=== PATIENT | male | born 1955 | race Caucasian/White ===

== ENCOUNTER 2018-01-17 14:16 | Outpatient (CLI) | payer MEDICARE, MEDICAID ==
[~2018-01-17 14:16] MED LIST: COL100C PO; LISI-222 PO; METF500T PO; POLY17PO10 PO; ZOC5T PO; [UNRECOGNIZED DRUG - CODE] PO
== END 2018-01-17 23:59 | disposition home or self-care (01) ==
LOC: RAD 14:16
PROVIDERS: ATTEND Family Medicine
DX: R13.12 Dysphagia, oropharyngeal phase (principal); R47.1 Dysarthria and anarthria; I10 Essential (primary) hypertension; E11.9 Type 2 diabetes mellitus without complications; Z98.890 Other specified postprocedural states
CPT/HCPCS: 74230

== ENCOUNTER 2018-06-15 17:15 | Emergency (ER) | payer MEDICARE, MEDICAID ==
[~2018-06-15] VITALS: Ht 172.7 cm; Wt 80.9 kg
[~2018-06-15 17:15] MED LIST changes: +SIMV5TAB58 PO; -ZOC5T PO
--- NOTE | 2018-06-15 19:27 | NUR ---
PATIENT SITTING IN WC IN ROOM, TRANSFERED PATIENT TO [facility] VIA [facility]RIST[facility] LIFT FOR CT SCAN; PATIENT HAD HIS HOME SLING UNDER HIM
--- NOTE | 2018-06-15 19:29 | NUR ---
INFORMED CT SCAN PATIENT ON [facility]
[2018-06-15 20:56] VITALS: BP 137/85
== END 2018-06-15 20:57 | disposition home or self-care (01) ==
LOC: ER 17:16
DX: T18.4XXA Foreign body in colon, initial encounter (principal); E11.9 Type 2 diabetes mellitus without complications; Z86.73 Personal history of transient ischemic attack (TIA), and cerebral infarction without residual deficits; Z79.84 Long term (current) use of oral hypoglycemic drugs; Z79.899 Other long term (current) drug therapy; W45.8XXA Other foreign body or object entering through skin, initial encounter; Y93.89 Activity, other specified; Y92.89 Other specified places as the place of occurrence of the external cause; Y99.8 Other external cause status
CPT/HCPCS: 74018; 74176; 99284

== ENCOUNTER 2018-06-28 13:04 | Emergency (ER) | payer MEDICARE, MEDICAID ==
[~2018-06-28] VITALS: Ht 177.8 cm; Wt 93.6 kg
[2018-06-28 13:16] VITALS: BP 132/76
--- NOTE | 2018-06-28 13:31 | NUR ---
[phone] RUTHANN GRAVES, CONSERVATOR AND SISTER IN LAW
[2018-06-28] MEDS ORDERED: PEG1POWD PO (13:50)
[2018-06-28] MEDS ORDERED: POLY17PO10 PO (13:50)
[2018-07-02] MEDS ORDERED: LEVO75TA7 PO (18:19)
[2018-07-02] MEDS ORDERED: OMEP20TA5 PO (18:20)
[2018-07-02] MEDS ORDERED: LISI2.5T89 PO (18:33)
[2018-07-02] MEDS ORDERED: CHOL10002 PO (18:33)
[2018-07-02] MEDS ORDERED: POLY17PO10 PO (18:33)
[2018-07-02] MEDS ORDERED: DOCU250C4 PO (18:33)
[2018-07-02] MEDS ORDERED: ASPI-1265 PO (18:33)
[2018-07-02] MEDS ORDERED: SERT25TA PO (18:33)
[2018-07-02] MEDS ORDERED: METF500T PO (18:33)
[2018-07-02] MEDS ORDERED: PHEN100C12 PO (18:33)
[2018-07-02] MEDS ORDERED: SIMV10TA2 PO (18:33)
== END 2018-06-28 14:32 | disposition home or self-care (01) ==
LOC: ER 13:05
DX: T18.4XXA Foreign body in colon, initial encounter (principal); E11.9 Type 2 diabetes mellitus without complications; Z86.73 Personal history of transient ischemic attack (TIA), and cerebral infarction without residual deficits; X58.XXXA Exposure to other specified factors, initial encounter; Y93.89 Activity, other specified; Y92.89 Other specified places as the place of occurrence of the external cause; Y99.8 Other external cause status
CPT/HCPCS: 99283

== ENCOUNTER 2018-07-02 12:18 | Inpatient (IN) | payer MEDICARE, MEDICAID | END 2018-07-05 13:30 | disposition home or self-care (01) | LOC: ER 12:18 → ED HOLD 19:37 → SUR 3N 22:00 | DX: T18.3XXA Foreign body in small intestine, initial encounter (principal); E11.9 Type 2 diabetes mellitus without complications; Z86.73 Personal history of transient ischemic attack (TIA), and cerebral infarction without residual deficits; Z99.3 Dependence on wheelchair ==

== ENCOUNTER 2018-09-02 09:54 | Emergency (ER) | payer MEDICARE, MEDICAID ==
[~2018-09-02] VITALS: Ht 180.3 cm; Wt 113.6 kg
[~2018-09-02 09:54] MED LIST changes: +ASPI-1265 PO; +CHOL10002 PO; -COL100C PO; +DOCU250C4 PO; +LEVO75TA7 PO; -LISI-222 PO; +LISI2.5T89 PO; -METF500T PO; +OMEP20TA5 PO; +PHEN100C12 PO; +SERT25TA PO; +SIMV10TA2 PO; -SIMV5TAB58 PO; -[UNRECOGNIZED DRUG - CODE] PO
[2018-09-02 10:09] VITALS: BP 121/76
[2018-09-02] MEDS ORDERED: VALA10002 PO (11:27)
== END 2018-09-02 12:05 | disposition home or self-care (01) ==
LOC: ER 09:55
DX: R21 Rash and other nonspecific skin eruption (principal); E11.9 Type 2 diabetes mellitus without complications; Z86.73 Personal history of transient ischemic attack (TIA), and cerebral infarction without residual deficits; Z98.890 Other specified postprocedural states; Z79.82 Long term (current) use of aspirin; Z79.899 Other long term (current) drug therapy
CPT/HCPCS: 99284

== ENCOUNTER 2018-11-22 07:50 | Emergency (ER) | payer MEDICARE, MEDICAID ==
[~2018-11-22] VITALS: Ht 182.9 cm; Wt 118.2 kg
[~2018-11-22 07:50] MED LIST changes: +DOCU-329 PO; -DOCU250C4 PO; +VALA10002 PO
[2018-11-22] MEDS ORDERED: iohexol 300 MG/1 ML 50ml polymer ONE (10:58)
--- NOTE | 2018-11-22 11:00 | NUR ---
PT TO INTERVENTION RADIOLOGY.
[2018-11-22] MEDS ORDERED: fentaNYL/PF 50MCG/1 ML 2ML syringe ONE (11:24)
--- NOTE | 2018-11-22 11:45 | NUR ---
PT BACK FROM INTERVENTIONAL RADIOLOGY,PT FIRST SET OF VITALS CHECKED HR 54 AND THEN DROPED TO 46 AND BACK TO 55 DR FROST AT BEDSIDE NOTIFIED PER MD PT WAS BRADYCARDIC BEFORE THATS HIS BASELINE PT IS STABLE NOTHING TO WORRY.
[2018-11-22 12:43] VITALS: BP 116/85
== END 2018-11-22 12:43 | disposition home or self-care (01) ==
LOC: ER 07:51
DX: K94.29 Other complications of gastrostomy (principal); E11.9 Type 2 diabetes mellitus without complications; Z86.69 Personal history of other diseases of the nervous system and sense organs; Z86.73 Personal history of transient ischemic attack (TIA), and cerebral infarction without residual deficits; Z98.890 Other specified postprocedural states; Z79.82 Long term (current) use of aspirin; Z79.899 Other long term (current) drug therapy
CPT/HCPCS: 49450; 99284; C1769; J3010; Q9967; B4087

== ENCOUNTER 2018-11-25 12:19 | Inpatient (IN) | payer MEDICARE, MEDICAID ==
[~2018-11-25] VITALS: Ht 175.3 cm; Wt 77.3 kg
[2018-11-25 13:18] LABS: BASOPHILS % (AUTO) 0.2 % (0-1); EOSINOPHILS % (AUTO) 0.7 % (0-6); HEMATOCRIT 38.1 % (42.0-52.0); HEMOGLOBIN 12.9 g/dl (14.0-17.9); LYMPHOCYTES # (AUTO) 0.8 X10'3 (1.1-4.8); MEAN CORPUSCULAR HEMOGLOBIN 32.4 PG (27.0-31.0); MEAN CORPUSCULAR HGB CONC 33.7 g/dL (33.0-36.5); MEAN PLATELET VOLUME 8.4 FL (7.4-10.4); MONOCYTES # (AUTO) 0.4 X10'3 (0-0.9); MONOCYTES % (AUTO) 5.7 % (2-12); NEUTROPHILS # (AUTO) 5.4 X10'3 (1.8-7.7); NEUTROPHILS % (AUTO) 81.4 % (42-75); PLATELET COUNT 86 X10'3 (140-440); RED BLOOD COUNT 3.97 X10'6 (4.70-6.10); RED CELL DISTRIBUTION WIDTH 15.4 % (11.5-14.5); WHITE BLOOD COUNT 6.6 X10'3 (4.5-11.0)
[2018-11-25 13:33] LABS: PARTIAL THROMBOPLASTIN TIME 42 SECONDS (22-32)
[2018-11-25 13:34] LABS: PLATELET ESTIMATE DECREASED; TOTAL CELLS COUNTED 100
[2018-11-25 13:35] LABS: ANISOCYTOSIS 1+; TOXIC GRANULATION 1+
[2018-11-25 13:40] LABS: ALANINE AMINOTRANSFERASE 47 U/L (12-78); ALBUMIN 2.8 G/DL (3.4-5.0); ALBUMIN/GLOBULIN RATIO 0.7 (1.1-1.5); ALKALINE PHOSPHATASE 118 IU/L (46-116); ANION GAP 8 (8-16); ASPARTATE AMINO TRANSFERASE 32 U/L (10-37); BILIRUBIN,TOTAL 0.2 MG/DL (0.1-1.0); BLOOD UREA NITROGEN 22 MG/DL (7-18); BUN/CREATININE RATIO 26.2 (5.4-32.0); CHLORIDE 107 MMOL/L (99-107); CREATININE 0.84 MG/DL (0.60-1.10); GLUCOSE 73 MG/DL (70-104); POTASSIUM 4.1 MMOL/L (3.5-5.1); SODIUM 142 MMOL/L (135-145); TOTAL CARBON DIOXIDE 26.6 MMOL/L (24-32); TOTAL PROTEIN 7.1 G/DL (6.4-8.2); eGFR > 90 ML/MIN
[2018-11-25 13:43] LABS: LACTIC SEPSIS 0.9 MMOL/L (0.4-2.0)
[2018-11-25 13:50] LABS: PHENYTOIN (DILANTIN) 5.8 UG/ML (10.0-20.0)
[2018-11-25 14:02] LABS: CLARITY,URINE SLIGHTLY CLOUDY (Clear); COLOR,URINE YELLOW (Yellow); GLUCOSE, URINE NEGATIVE (Neg); KETONES,URINE NEGATIVE (Neg); LEUKOCYTE ESTERASE ,URINE MODERATE (Neg); NITRITES, URINE NEGATIVE (Neg); OCCULT BLOOD,URINE NEGATIVE (Neg); PROTEIN,URINE NEGATIVE (Neg); UROBILINOGEN,URINE 0.2 E.U/dL (0.2-1.0)
[2018-11-25 14:08] LABS: UA COLLECTION TYPE STRAIGHT CATH
[2018-11-25 14:10] LABS: BACTERIA,URINE 4+ /HPF (Neg); MUCUS STRANDS NONE SEEN /LPF (Neg); RBC,URINE NONE SEEN /HPF (0-2); SQUAMOUS EPITHELIAL CELL,UR NONE SEEN /LPF (FEW)
[2018-11-25 14:11] LABS: WBC CLUMPS,URINE FEW /HPF (NEGATIVE)
[2018-11-25 14:13] LABS: URINE AMPHETAMINE SCREEN NEGATIVE (Neg); URINE BARBITUATE SCREEN NEGATIVE (Neg); URINE BENZODIAZEPINES SCREEN POSITIVE (Neg); URINE CANNABINOID SCREEN NEGATIVE (Neg); URINE COCAINE SCREEN NEGATIVE (Neg); URINE METHADONE SCREEN NEGATIVE (Neg); URINE OPIATE SCREEN NEGATIVE (Neg); URINE PHENCYCLIDINE SCREEN NEGATIVE (Neg)
[2018-11-25] MEDS ORDERED: azithromycin/NS 500mg/250ml 250 ML IV ONE (14:25)
[2018-11-25] MEDS ORDERED: CefTRIAXone/D5W-Rocephin 1gm 50 ML IV ONE (14:25)
[2018-11-25] MEDS: normal saline 1000ml 1,000 ML IV SCH (14:42)
[2018-11-25] MEDS ORDERED: bisacodyl 10mg suppository rectal RC PRN (14:45)
[2018-11-25] MEDS ORDERED: potassium CL 10mEq/100ml bag 100 ML IV PRN ×2 (14:45)
[2018-11-25] MEDS ORDERED: magnesium 2GM in 50ml NS 50 ML IV PRN (14:45)
[2018-11-25] MEDS ORDERED: magnesium 4gm in 100ml NS 100 ML IV PRN (14:45)
[2018-11-25] MEDS ORDERED: ondansetron/PF 4mg/2ml inj IV PRN (14:45)
[2018-11-25] MEDS ORDERED: acetaminophen 650mg rectal suppository RC PRN (14:45)
[2018-11-25] MEDS: piperacillin/tazo 3.375gm/50ml 50 ML IV SCH ×2 (16:00→23:52)
[2018-11-25] MEDS: NORMAL SALINE IV SCH ×2 (17:21→23:30)
[2018-11-25] MEDS: PHENYTOIN SOD IV SCH ×2 (17:21→23:30)
[2018-11-25 19:15] VITALS: BP 116/63
[2018-11-25 23:00] VITALS: BP 139/79
[2018-11-26] MEDS: normal saline 1000ml 1,000 ML IV SCH ×2 (00:42→05:47)
--- NOTE | 2018-11-26 06:23 | NUR ---
Problems reprioritized. Patient report given, questions answered & plan of care reviewed with GWYN. Addendum: 11/26/18 at 0624 by Beck Rivera RN Amended: Links added.
[2018-11-26 06:39] LABS: ALANINE AMINOTRANSFERASE 44 U/L (12-78); ALBUMIN 2.6 G/DL (3.4-5.0); ALBUMIN/GLOBULIN RATIO 0.6 (1.1-1.5); ALKALINE PHOSPHATASE 105 IU/L (46-116); ANION GAP 8 (8-16); ASPARTATE AMINO TRANSFERASE 38 U/L (10-37); BILIRUBIN,TOTAL 0.3 MG/DL (0.1-1.0); CALCIUM 8.5 MG/DL (8.5-10.1); CHLORIDE 110 MMOL/L (99-107); CREATININE 0.76 MG/DL (0.60-1.10); GLUCOSE 57 MG/DL (70-104); MAGNESIUM 1.7 MG/DL (1.5-2.4); POTASSIUM 4.1 MMOL/L (3.5-5.1); SODIUM 142 MMOL/L (135-145); TOTAL CARBON DIOXIDE 24.2 MMOL/L (24-32); TOTAL PROTEIN 6.7 G/DL (6.4-8.2); eGFR > 90 ML/MIN
[2018-11-26 06:53] LABS: BLOOD UREA NITROGEN 19 MG/DL (7-18)
[2018-11-26 07:54] VITALS: BP 127/73
[2018-11-26] MEDS: K and/or MAG REPLACEMENT MC SCH (08:00)
[2018-11-26] MEDS ORDERED: DOXY-224 PO (08:23)
[2018-11-26] MEDS ORDERED: DOCU-329 PO (08:26)
[2018-11-26] MEDS ORDERED: POLY17PO10 PO (08:27)
[2018-11-26 10:00] VITALS: BP 143/77
[2018-11-26] MEDS: PHENYTOIN SOD IV SCH ×3 (10:33→23:35)
[2018-11-26] MEDS: NORMAL SALINE IV SCH ×3 (10:33→23:35)
[2018-11-26] MEDS: piperacillin/tazo 3.375gm/50ml 50 ML IV SCH ×2 (10:42→15:41)
[2018-11-26 11:29] LABS: BASOPHILS % (AUTO) 0.5 % (0-1); EOSINOPHILS # (AUTO) 0.1 X10'3 (0-0.9); EOSINOPHILS % (AUTO) 1.7 % (0-6); HEMATOCRIT 36.8 % (42.0-52.0); HEMOGLOBIN 12.4 g/dl (14.0-17.9); LYMPHOCYTES # (AUTO) 0.8 X10'3 (1.1-4.8); LYMPHOCYTES % (AUTO) 18.6 % (21-51); MEAN CORPUSCULAR HEMOGLOBIN 32.4 PG (27.0-31.0); MEAN CORPUSCULAR HGB CONC 33.6 g/dL (33.0-36.5); MEAN CORPUSCULAR VOLUME 96.7 FL (78-98); MEAN PLATELET VOLUME 8.7 FL (7.4-10.4); MONOCYTES # (AUTO) 0.4 X10'3 (0-0.9); MONOCYTES % (AUTO) 9.4 % (2-12); NEUTROPHILS # (AUTO) 2.9 X10'3 (1.8-7.7); NEUTROPHILS % (AUTO) 69.8 % (42-75); PLATELET COUNT 79 X10'3 (140-440); RED BLOOD COUNT 3.81 X10'6 (4.70-6.10); RED CELL DISTRIBUTION WIDTH 15.5 % (11.5-14.5); WHITE BLOOD COUNT 4.1 X10'3 (4.5-11.0)
[2018-11-26 18:00] VITALS: BP 127/77
--- NOTE | 2018-11-26 18:25 | NUR ---
Received report from Lucretia BRAR, assumed care of patient with Aarti BRAR.
[2018-11-26 22:00] VITALS: BP 137/72
[2018-11-27] MEDS: piperacillin/tazo 3.375gm/50ml 50 ML IV SCH ×3 (00:19→17:18)
--- NOTE | 2018-11-27 05:47 | NUR ---
In agreement with and have reviewed all charting and med pass completed by Janelle BRAR for the shift time frame.
[2018-11-27 06:00] VITALS: BP 123/70
--- NOTE | 2018-11-27 06:32 | NUR ---
gave report to Shahida BRAR.
[2018-11-27 07:16] LABS: BASOPHILS % (AUTO) 0.5 % (0-1); EOSINOPHILS # (AUTO) 0.1 X10'3 (0-0.9); EOSINOPHILS % (AUTO) 1.8 % (0-6); HEMATOCRIT 38.3 % (42.0-52.0); HEMOGLOBIN 12.9 g/dl (14.0-17.9); LYMPHOCYTES # (AUTO) 0.8 X10'3 (1.1-4.8); LYMPHOCYTES % (AUTO) 23.8 % (21-51); MEAN CORPUSCULAR HEMOGLOBIN 32.1 PG (27.0-31.0); MEAN CORPUSCULAR HGB CONC 33.6 g/dL (33.0-36.5); MEAN CORPUSCULAR VOLUME 95.6 FL (78-98); MEAN PLATELET VOLUME 8.2 FL (7.4-10.4); MONOCYTES # (AUTO) 0.3 X10'3 (0-0.9); MONOCYTES % (AUTO) 7.8 % (2-12); NEUTROPHILS # (AUTO) 2.3 X10'3 (1.8-7.7); NEUTROPHILS % (AUTO) 66.1 % (42-75); PLATELET COUNT 88 X10'3 (140-440); RED CELL DISTRIBUTION WIDTH 15.4 % (11.5-14.5); WHITE BLOOD COUNT 3.4 X10'3 (4.5-11.0)
[2018-11-27 07:22] LABS: ALANINE AMINOTRANSFERASE 44 U/L (12-78); ALBUMIN 2.6 G/DL (3.4-5.0); ALBUMIN/GLOBULIN RATIO 0.6 (1.1-1.5); ALKALINE PHOSPHATASE 103 IU/L (46-116); ANION GAP 10 (8-16); ASPARTATE AMINO TRANSFERASE 36 U/L (10-37); BILIRUBIN,TOTAL 0.3 MG/DL (0.1-1.0); BLOOD UREA NITROGEN 15 MG/DL (7-18); BUN/CREATININE RATIO 17.9 (5.4-32.0); CALCIUM 8.7 MG/DL (8.5-10.1); CHLORIDE 112 MMOL/L (99-107); CREATININE 0.84 MG/DL (0.60-1.10); MAGNESIUM 1.7 MG/DL (1.5-2.4); POTASSIUM 3.9 MMOL/L (3.5-5.1); SODIUM 144 MMOL/L (135-145); TOTAL CARBON DIOXIDE 22.5 MMOL/L (24-32); TOTAL PROTEIN 6.7 G/DL (6.4-8.2); eGFR > 90 ML/MIN
[2018-11-27 07:24] LABS: GLUCOSE 50 MG/DL (70-104)
[2018-11-27] MEDS ORDERED: dextrose 50%-water 50ml dispensing syringe IV ONE (07:30)
--- NOTE | 2018-11-27 07:30 | NUR ---
CRITICAL LAB Blood glucose 50. Recheck at aprox 0730 blood glucose 43 administered D50 IV push. will recheck. MD Quevedo paged.
[2018-11-27] MEDS: K and/or MAG REPLACEMENT MC SCH (08:00)
--- NOTE | 2018-11-27 08:01 | NUR ---
recheck of blood glucose; 137. Will continue to monitor BG as pt is still NPO
[2018-11-27] MEDS: PHENYTOIN SOD IV SCH ×2 (08:51→17:18)
[2018-11-27] MEDS: NORMAL SALINE IV SCH ×2 (08:51→17:18)
[2018-11-27] MEDS ORDERED: iohexol 300 MG/1 ML 50ml polymer ONE (14:54)
--- NOTE | 2018-11-27 18:46 | NUR ---
Patient in room ORTHO 4012. I have received report from Shahida BRAR and had the opportunity to ask questions and assume patient care.
[2018-11-27 20:00] VITALS: BP 118/81
[2018-11-28] MEDS: PHENYTOIN SOD IV SCH ×3 (00:38→16:00)
[2018-11-28] MEDS: piperacillin/tazo 3.375gm/50ml 50 ML IV SCH (00:38)
[2018-11-28] MEDS: NORMAL SALINE IV SCH ×3 (00:38→16:00)
[2018-11-28 06:00] VITALS: BP 118/81
--- NOTE | 2018-11-28 06:40 | NUR ---
Patient in room ORTHO 4012. I have received report from ZONIA Vasquez and had the opportunity to ask questions and assume patient care.
--- NOTE | 2018-11-28 06:42 | NUR ---
Problems reprioritized. Patient report given, questions answered & plan of care reviewed with Binta RN.
[2018-11-28] MEDS: K and/or MAG REPLACEMENT MC SCH (08:00)
--- NOTE | 2018-11-28 09:42 | NUR ---
Patient blood sugar low this am, slowly ate his breakfast, re-checked blood glucose after patient able to eat all his breakfast and blood glucose now up to 112.
[2018-11-28 10:00] VITALS: BP 144/48
[2018-11-28] MEDS ORDERED: LEVO750T21 PO (10:50)
[2018-11-29] MEDS ORDERED: levoFLOXACIN-Levaquin 500mg/D5 100 ML IV SCH (08:00)
== END 2018-11-28 15:00 | disposition home or self-care (01) | DRG 393 ==
LOC: ER 12:20 → ORTHO 4S 19:12
PROVIDERS: ADMIT Family Medicine; ATTEND Family Medicine
PROC: 0D20XUZ Change Feeding Device in Upper Intestinal Tract, External Approach (ICD-10-PCS; principal; 2018-11-27)
DX: Z43.1 Encounter for attention to gastrostomy (principal); J18.1 Lobar pneumonia, unspecified organism; N39.0 Urinary tract infection, site not specified; I69.354 Hemiplegia and hemiparesis following cerebral infarction affecting left non-dominant side; G93.40 Encephalopathy, unspecified; G80.9 Cerebral palsy, unspecified; G40.909 Epilepsy, unspecified, not intractable, without status epilepticus; B96.20 Unspecified Escherichia coli [E. coli] as the cause of diseases classified elsewhere; D64.9 Anemia, unspecified; E11.649 Type 2 diabetes mellitus with hypoglycemia without coma; R13.10 Dysphagia, unspecified; Z82.0 Family history of epilepsy and other diseases of the nervous system; Z82.49 Family history of ischemic heart disease and other diseases of the circulatory system; Z83.3 Family history of diabetes mellitus; Z78.1 Physical restraint status; Z79.899 Other long term (current) drug therapy; Z79.82 Long term (current) use of aspirin; Z90.49 Acquired absence of other specified parts of digestive tract
CPT/HCPCS: 36415; 43763; 49450; 49465; 70450; 71045; 74018; 80053; 80185; 80305; 81001; 82140; 82948; 83605; 83735; 83880; 84484; 85025; 85610; 85730; 87040; 87077; 87081; 87088; 87186; 92508; 92616; 93005; 96365; 96368; 99285; G0378; J0456; J0696; J1165; J2543; J7030; Q9967

== ENCOUNTER 2019-01-25 17:36 | Emergency (ER) | payer MEDICARE, MEDICAID ==
[~2019-01-25] VITALS: Ht 185.4 cm; Wt 125.0 kg
[~2019-01-25 17:36] MED LIST changes: -VALA10002 PO
[2019-01-25 18:28] LABS: BASOPHILS % (AUTO) 0.3 % (0-1); EOSINOPHILS % (AUTO) 1.2 % (0-6); HEMATOCRIT 35.4 % (42.0-52.0); HEMOGLOBIN 12.1 g/dl (14.0-17.9); LYMPHOCYTES # (AUTO) 0.6 X10'3 (1.1-4.8); LYMPHOCYTES % (AUTO) 20.9 % (21-51); MEAN CORPUSCULAR HEMOGLOBIN 32.7 PG (27.0-31.0); MEAN CORPUSCULAR HGB CONC 34.3 g/dL (33.0-36.5); MEAN CORPUSCULAR VOLUME 95.4 FL (78-98); MEAN PLATELET VOLUME 7.7 FL (7.4-10.4); MONOCYTES # (AUTO) 0.3 X10'3 (0-0.9); MONOCYTES % (AUTO) 9.1 % (2-12); NEUTROPHILS # (AUTO) 2.1 X10'3 (1.8-7.7); NEUTROPHILS % (AUTO) 68.5 % (42-75); PLATELET COUNT 107 X10'3 (140-440); RED BLOOD COUNT 3.71 X10'6 (4.70-6.10); RED CELL DISTRIBUTION WIDTH 16.4 % (11.5-14.5); WHITE BLOOD COUNT 3.1 X10'3 (4.5-11.0)
[2019-01-25 18:33] LABS: PARTIAL THROMBOPLASTIN TIME 33 SECONDS (22-32)
[2019-01-25 18:47] LABS: ALANINE AMINOTRANSFERASE 54 U/L (12-78); ALBUMIN 2.6 G/DL (3.4-5.0); ALBUMIN/GLOBULIN RATIO 0.5 (1.1-1.5); ALKALINE PHOSPHATASE 146 IU/L (46-116); ANION GAP 8 (8-16); ASPARTATE AMINO TRANSFERASE 45 U/L (10-37); BILIRUBIN,TOTAL 0.2 MG/DL (0.1-1.0); BLOOD UREA NITROGEN 18 MG/DL (7-18); BUN/CREATININE RATIO 23.4 (5.4-32.0); CALCIUM 9.4 MG/DL (8.5-10.1); CHLORIDE 109 MMOL/L (99-107); CREATININE 0.77 MG/DL (0.60-1.10); GLUCOSE 79 MG/DL (70-104); SODIUM 143 MMOL/L (135-145); TOTAL CARBON DIOXIDE 26.4 MMOL/L (24-32); TOTAL PROTEIN 7.7 G/DL (6.4-8.2); eGFR > 90 ML/MIN
[2019-01-25 19:14] VITALS: BP 109/69
== END 2019-01-25 19:46 | disposition home or self-care (01) ==
LOC: ER 17:36
DX: J18.1 Lobar pneumonia, unspecified organism (principal); E11.9 Type 2 diabetes mellitus without complications; Z79.82 Long term (current) use of aspirin; Z79.899 Other long term (current) drug therapy; Z86.73 Personal history of transient ischemic attack (TIA), and cerebral infarction without residual deficits; Z86.69 Personal history of other diseases of the nervous system and sense organs
CPT/HCPCS: 36415; 71045; 80053; 83605; 83880; 85025; 85610; 85730; 87040; 93005; 99284

== ENCOUNTER 2019-02-08 17:03 | Emergency (ER) | payer MEDICARE, MEDICAID ==
[~2019-02-08] VITALS: Ht 182.9 cm; Wt 75.0 kg
[2019-02-08] MEDS ORDERED: dextrose 50%-water 50ml dispensing syringe IV ONE (17:25)
[2019-02-08] MEDS ORDERED: phenytoin sod ER 100mg capsule PO STA (17:49)
[2019-02-08 18:13] LABS: PARTIAL THROMBOPLASTIN TIME 22 SECONDS (22-32)
[2019-02-08] MEDS ORDERED: levetiracetam inj 1,000 MG in normal saline 100ml IV soln 90 ML IV SCH (19:00)
[2019-02-08 19:07] LABS: BASOPHILS % (AUTO) 0.3 % (0-1); EOSINOPHILS % (AUTO) 0.8 % (0-6); HEMATOCRIT 35.3 % (42.0-52.0); HEMOGLOBIN 11.9 g/dl (14.0-17.9); LYMPHOCYTES # (AUTO) 0.6 X10'3 (1.1-4.8); LYMPHOCYTES % (AUTO) 15.2 % (21-51); MEAN CORPUSCULAR HEMOGLOBIN 32.5 PG (27.0-31.0); MEAN CORPUSCULAR HGB CONC 33.9 g/dL (33.0-36.5); MEAN CORPUSCULAR VOLUME 95.9 FL (78-98); MEAN PLATELET VOLUME 7.7 FL (7.4-10.4); MONOCYTES # (AUTO) 0.3 X10'3 (0-0.9); MONOCYTES % (AUTO) 8.1 % (2-12); NEUTROPHILS # (AUTO) 3.1 X10'3 (1.8-7.7); NEUTROPHILS % (AUTO) 75.6 % (42-75); PLATELET COUNT 142 X10'3 (140-440); RED BLOOD COUNT 3.68 X10'6 (4.70-6.10); RED CELL DISTRIBUTION WIDTH 16.9 % (11.5-14.5); WHITE BLOOD COUNT 4.1 X10'3 (4.5-11.0)
[2019-02-08 19:52] LABS: ALANINE AMINOTRANSFERASE 54 U/L (12-78); ALBUMIN 2.8 G/DL (3.4-5.0); ALBUMIN/GLOBULIN RATIO 0.6 (1.1-1.5); ALKALINE PHOSPHATASE 138 IU/L (46-116); ANION GAP 5 (8-16); ASPARTATE AMINO TRANSFERASE 40 U/L (10-37); BILIRUBIN,TOTAL 0.1 MG/DL (0.1-1.0); BLOOD UREA NITROGEN 24 MG/DL (7-18); BUN/CREATININE RATIO 33.3 (5.4-32.0); CALCIUM 8.8 MG/DL (8.5-10.1); CHLORIDE 111 MMOL/L (99-107); CREATINE KINASE 124 U/L (39-308); CREATININE 0.72 MG/DL (0.60-1.10); GLUCOSE 126 MG/DL (70-104); MAGNESIUM 1.8 MG/DL (1.5-2.4); PHENYTOIN (DILANTIN) 5.9 UG/ML (10.0-20.0); POTASSIUM 5.1 MMOL/L (3.5-5.1); SODIUM 145 MMOL/L (135-145); TOTAL PROTEIN 7.6 G/DL (6.4-8.2); eGFR > 90 ML/MIN
--- NOTE | 2019-02-08 19:54 | NUR ---
CT INFORMED ME THEY WERE GOING TO TAKE THE PATIENT FOR CT
[2019-02-08] MEDS ORDERED: phenytoin 50mg chewable tablet PO ONE (21:15)
[2019-02-08 22:29] VITALS: BP 124/65
== END 2019-02-08 23:00 | disposition home or self-care (01) ==
LOC: ER 17:04
DX: G40.909 Epilepsy, unspecified, not intractable, without status epilepticus (principal); R89.2 Abnormal level of other drugs, medicaments and biological substances in specimens from other organs, systems and tissues; R41.82 Altered mental status, unspecified; E11.9 Type 2 diabetes mellitus without complications; Z86.73 Personal history of transient ischemic attack (TIA), and cerebral infarction without residual deficits; Z98.890 Other specified postprocedural states; Z79.82 Long term (current) use of aspirin; Z79.899 Other long term (current) drug therapy
CPT/HCPCS: 70450; 80053; 80185; 82550; 82948; 83735; 83874; 85025; 85610; 85730; 96365; 96375; 99284; J1953

== ENCOUNTER 2019-03-17 10:27 | Emergency (ER) | payer MEDICARE, MEDICAID ==
[~2019-03-17] VITALS: Ht 172.7 cm; Wt 95.0 kg
--- NOTE | 2019-03-17 11:00 | NUR ---
BIB EMS FROM [facility] ([facility]) WITH REPORTS OF BLOOD IN URINE. PATIENT IS NON-VERBAL, BUT STAFF FROM [facility] IS HERE TO GIVE INFORMATION. PATIENT FOUND TO HAVE BLOOD IN URINE AROUND 0200 AND FEVER OF 101.3 F. HX DM II, DEVELOPMENTAL DELAY, CP, SEIZURES. AFEBRILE AT THIS TIME.
[2019-03-17] MEDS ORDERED: normal saline 1000ML IV soln IV ONE (11:15)
[2019-03-17 12:29] LABS: CLARITY,URINE CLOUDY (Clear); COLOR,URINE AMBER (Yellow); GLUCOSE, URINE NEGATIVE (Neg); KETONES,URINE NEGATIVE (Neg); LEUKOCYTE ESTERASE ,URINE SMALL (Neg); NITRITES, URINE NEGATIVE (Neg); OCCULT BLOOD,URINE LARGE (Neg); PH,URINE 8.5 (4.8-8.0); PROTEIN,URINE 100 mg/dl (Neg); UROBILINOGEN,URINE 0.2 E.U/dL (0.2-1.0)
[2019-03-17 12:32] LABS: UA COLLECTION TYPE STRAIGHT CATH
[2019-03-17 12:32] LABS: BASOPHILS % (AUTO) 0.5 % (0-1); EOSINOPHILS # (AUTO) 0.1 X10'3 (0-0.9); EOSINOPHILS % (AUTO) 2.3 % (0-6); HEMATOCRIT 38.7 % (42.0-52.0); HEMOGLOBIN 13.3 g/dl (14.0-17.9); LYMPHOCYTES # (AUTO) 1.3 X10'3 (1.1-4.8); LYMPHOCYTES % (AUTO) 22.5 % (21-51); MEAN CORPUSCULAR HEMOGLOBIN 33.9 PG (27.0-31.0); MEAN CORPUSCULAR HGB CONC 34.3 g/dL (33.0-36.5); MEAN CORPUSCULAR VOLUME 98.8 FL (78-98); MEAN PLATELET VOLUME 7.6 FL (7.4-10.4); MONOCYTES # (AUTO) 0.5 X10'3 (0-0.9); MONOCYTES % (AUTO) 9.2 % (2-12); NEUTROPHILS # (AUTO) 3.7 X10'3 (1.8-7.7); NEUTROPHILS % (AUTO) 65.5 % (42-75); PLATELET COUNT 205 X10'3 (140-440); RED BLOOD COUNT 3.92 X10'6 (4.70-6.10); RED CELL DISTRIBUTION WIDTH 16.7 % (11.5-14.5); WHITE BLOOD COUNT 5.6 X10'3 (4.5-11.0)
[2019-03-17 12:33] LABS: WBC,URINE 0-4 /HPF (0-4)
[2019-03-17 12:34] LABS: BACTERIA,URINE FEW /HPF (Neg); MUCUS STRANDS NONE SEEN /LPF (Neg); RBC,URINE TNTC /HPF (0-2); SQUAMOUS EPITHELIAL CELL,UR NONE SEEN /LPF (FEW)
[2019-03-17 12:45] LABS: PARTIAL THROMBOPLASTIN TIME 30 SECONDS (22-32)
[2019-03-17 12:50] LABS: ALANINE AMINOTRANSFERASE 46 U/L (12-78); ALBUMIN/GLOBULIN RATIO 0.6 (1.1-1.5); ALKALINE PHOSPHATASE 219 IU/L (46-116); ANION GAP 5 (8-16); ASPARTATE AMINO TRANSFERASE 32 U/L (10-37); BILIRUBIN,TOTAL 0.2 MG/DL (0.1-1.0); BLOOD UREA NITROGEN 23 MG/DL (7-18); BUN/CREATININE RATIO 31.5 (5.4-32.0); CALCIUM 8.8 MG/DL (8.5-10.1); CHLORIDE 104 MMOL/L (99-107); CREATININE 0.73 MG/DL (0.60-1.10); GLUCOSE 84 MG/DL (70-104); MAGNESIUM 1.8 MG/DL (1.5-2.4); SODIUM 139 MMOL/L (135-145); TOTAL CARBON DIOXIDE 29.9 MMOL/L (24-32); TOTAL PROTEIN 7.7 G/DL (6.4-8.2); eGFR > 90 ML/MIN
[2019-03-17 13:24] VITALS: BP 109/64
== END 2019-03-17 14:36 | disposition home or self-care (01) ==
LOC: ER 10:28
DX: R31.9 Hematuria, unspecified (principal); E11.9 Type 2 diabetes mellitus without complications; Z79.899 Other long term (current) drug therapy; Z79.82 Long term (current) use of aspirin; Z86.73 Personal history of transient ischemic attack (TIA), and cerebral infarction without residual deficits; Z98.890 Other specified postprocedural states
CPT/HCPCS: 36415; 71045; 80053; 81001; 83605; 83735; 84145; 85025; 85610; 85730; 87040; 87088; 87186; 93005; 99284; J7030; 87077

== ENCOUNTER 2019-12-26 11:16 | Day surgery (SDC) | payer MEDICARE, MEDICAID ==
[2019-12-20 13:55] LABS: BASOPHILS % (AUTO) 0.5 % (0-1); EOSINOPHILS # (AUTO) 0.1 X10'3 (0-0.9); EOSINOPHILS % (AUTO) 2.3 % (0-6); LYMPHOCYTES # (AUTO) 0.7 X10'3 (1.1-4.8); MEAN CORPUSCULAR HEMOGLOBIN 34.9 PG (27.0-31.0); MEAN CORPUSCULAR HGB CONC 33.9 g/dL (33.0-36.5); MEAN CORPUSCULAR VOLUME 102.9 FL (78-98); MEAN PLATELET VOLUME 8.3 FL (7.4-10.4); MONOCYTES # (AUTO) 0.3 X10'3 (0-0.9); MONOCYTES % (AUTO) 10.1 % (2-12); NEUTROPHILS % (AUTO) 63.1 % (42-75); PRE OP HEMATOCRIT 31.8 % (42.0-52.0); PRE OP PLATELET COUNT 126 X10'3 (140-440); RED BLOOD COUNT 3.09 X10'6 (4.70-6.10); RED CELL DISTRIBUTION WIDTH 15.8 % (11.5-14.5)
[2019-12-20 13:57] LABS: PRE OP HEMOGLOBIN 10.8 g/dL (14.0-17.9)
[2019-12-20 14:11] LABS: PRE OP PROTIME 10.5 SECONDS (9.0-12.0)
[2019-12-20 14:16] LABS: ALBUMIN 2.8 G/DL (3.4-5.0); ALBUMIN/GLOBULIN RATIO 0.7 (1.1-1.5); ALKALINE PHOSPHATASE 145 IU/L (46-116); BLOOD UREA NITROGEN 17 MG/DL (7-18); BUN/CREATININE RATIO 24.6 (5.4-32.0); CALCIUM 8.7 MG/DL (8.5-10.1); CHLORIDE 110 MMOL/L (99-107); CREATININE 0.69 MG/DL (0.60-1.10); PRE OP ALT 38 U/L (30-65); PRE OP ANION GAP 5 (8-16); PRE OP AST 44 U/L (10-37); PRE OP BILIRUB, TOTAL 0.2 MG/DL (0.0-1.0); PRE OP GLUCOSE 109 MG/DL (70-104); PRE OP POTASSIUM 4.4 MMOL/L (3.4-5.1); PRE OP SODIUM 142 MMOL/L (135-145); TOTAL CARBON DIOXIDE 26.6 MMOL/L (24-32); eGFR > 90 ML/MIN
[~2019-12-26] VITALS: Ht 182.9 cm; Wt 111.1 kg
[2019-12-26] VITALS (12 sets, daily range): BP systolic 86–159; BP diastolic 53–88
[~2019-12-26 11:16] MED LIST changes: -CHOL10002 PO; -DOCU-329 PO; +DOXA2TAB2 PEG; +LEVO75TA7 PEG; -LEVO75TA7 PO; +LISI2.5T89 PEG; -LISI2.5T89 PO; +OMEP20TA5 PEG; -OMEP20TA5 PO; +PHEN100C12 PEG; -PHEN100C12 PO; +POLY17PO10 PEG; -POLY17PO10 PO; +SERT25TA PEG; -SERT25TA PO; +SIMV10TA2 PEG; -SIMV10TA2 PO; +famotidine 20mg tablet PO ONE; +ringers solution, lacted 1,000 ML IV SCH
[2019-12-26] MEDS ORDERED: fentaNYL/PF 50MCG/1 ML 2ML syringe ONE (14:05)
[2019-12-26] MEDS ORDERED: propofol inj 20 ML IV ONE (14:05)
[2019-12-26] MEDS ORDERED: ringers solution, lacted 1,000 ML IV SCH (14:08)
[2019-12-26] MEDS ORDERED: sevoflurane 250ml liquid IH ONE (14:09)
[2019-12-26] MEDS ORDERED: morphine 4 MG/ML inj SYRINge IV PRN (14:10)
[2019-12-26] MEDS ORDERED: ondansetron/PF 4mg/2ml inj IV PRN (14:10)
[2019-12-26] MEDS ORDERED: meperidine/PF 25mg/ml syringe IV PRN ×3 (14:10)
[2019-12-26] MEDS ORDERED: morphine 2 MG/ML inj. syringe IV PRN (14:10)
[2019-12-26] MEDS ORDERED: proCHLORperazine 10 MG/2 ml inj IV PRN (14:10)
--- NOTE | 2019-12-26 15:02 | NUR ---
Received from OR via [facility] , accompanied by Anesthesiologist TUSHAR and report given by Anesthesiolgist. PATIENT WITH 20GPIV IN LEFT UE RUNNING LR AT 100. LEFT PSIS AREA WITH FOAM TAPE DRESSING THAT IS CDI AT THIS TIME. Addendum: 12/26/19 at 1514 by Richy Blas RN, RN Amended: Links added.
[2019-12-26 16:16] LABS: HEMOGLOBIN 11.5 g/dl (14.0-17.9); MEAN CORPUSCULAR HGB CONC 34.2 g/dL (33.0-36.5); WHITE BLOOD COUNT 3.6 X10'3 (4.5-11.0)
[2019-12-26 16:18] LABS: HEMATOCRIT 33.5 % (42.0-52.0); MEAN CORPUSCULAR VOLUME 102.2 FL (78-98); MEAN PLATELET VOLUME 8.8 FL (7.4-10.4); PLATELET COUNT 144 X10'3 (140-440); RED BLOOD COUNT 3.28 X10'6 (4.70-6.10); RED CELL DISTRIBUTION WIDTH 15.5 % (11.5-14.5)
[2019-12-26 16:34] LABS: TOTAL CELLS COUNTED 100
[2019-12-26 16:35] LABS: MICROCYTOSIS 1+; PLATELET ESTIMATE NORMAL
--- NOTE | 2019-12-26 16:52 | NUR ---
I HAVE REVIEWED D/C INSTRUCTIONS WITH PATIENT AND FAMILY AND THEY HAVE VERBALIZED UNDERSTANDING. PATIENT D/C HOME WITH ALL BELONGINGS AND FAMILY GAVE TRANSPORT HOME. DIETARY SERVICES MANAGER TOOK PATIENT HOME. REASSESSED LEFT PSIS SITE AND IT STILL CDI AT TIME OF DISCHARGE. LIFT TO WHEELCHAIR AND SECURED WITH ASSIST OF DIETARY SERVICES MANAGER. Addendum: 12/26/19 at 1712 by Richy Blas RN, RN Amended: Links added.
== END 2019-12-26 16:52 | disposition home or self-care (01) ==
LOC: PAS 11:16
PROVIDERS: ATTEND Pathology Cytopathology
DX: D72.819 Decreased white blood cell count, unspecified (principal); E11.9 Type 2 diabetes mellitus without complications; G40.409 Other generalized epilepsy and epileptic syndromes, not intractable, without status epilepticus; I10 Essential (primary) hypertension; G47.30 Sleep apnea, unspecified; F32.9 Major depressive disorder, single episode, unspecified; E03.9 Hypothyroidism, unspecified; K21.9 Gastro-esophageal reflux disease without esophagitis; D69.6 Thrombocytopenia, unspecified; E66.9 Obesity, unspecified; Z68.33 Body mass index [BMI] 33.0-33.9, adult; Z20.828 Contact with and (suspected) exposure to other viral communicable diseases; Z79.899 Other long term (current) drug therapy; Z79.01 Long term (current) use of anticoagulants; Z98.890 Other specified postprocedural states; Z86.73 Personal history of transient ischemic attack (TIA), and cerebral infarction without residual deficits
CPT/HCPCS: 36415; 38222; 80053; 82948; 85025; 85610; 85730; 85999; 87635; 88184; 88185; 93005; C9803; J2704; J3010; 85007; 88305; 88311; A4618; A6449; J7120